=== PATIENT | female | born 1990 | race Two or more races ===

== ENCOUNTER 2018-02-18 15:19 | Emergency (ER) | payer SELFPAY ==
[~2018-02-18] VITALS: Ht 165.1 cm; Wt 63.5 kg
[~2018-02-18 15:19] MED LIST: AZITHROMYCIN250 MG ORAL; HYDROCODON-ACE1 EA15 ORAL; IBUPROFEN600 MG ORAL; LIDOCAINE VISC100 ML ORAL; NKM; TYLENOL EXTRA500 MG ORAL
[2018-02-18 15:53] VITALS: BP 117/78
--- NOTE | 2018-02-18 16:04 | Emergency Room Report ---
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 Patient denies new trauma or fall since previous 2 visits over the course of the last 2 weeks. patient reports 10 out of 10 in severity knee pain times one month. Patient reports that she needs an MRI and has been unable to schedule one. Patient reports that she return to the ER last week and was given an orthopedist referral information however she was not able to contact that doctor to schedule an appointment therefore she return to the emergency department for additional orthopedic referrals. Allergies: Coded Allergies: No Known Allergies (Unverified , 02/13/18) Patient History Past Medical History: see triage record Past Surgical History: none Pertinent Family History: none Last Menstrual Period: 01/19/18 Now: No Reviewed Nursing Documentation: PMH: Agreed; PSxH: Agreed Nursing Documentation-PMH Past Medical History: No Stated History Review of Systems All Other Systems: negative except mentioned in HPI Physical Exam Vital Signs Date Time Temp Pulse Resp B/P (MAP) Pulse Ox O2 Delivery O2 Flow Rate FiO2 02/18/18 15:52 97.5 16 117/78 100 Room Air Sp02 EP Interpretation: reviewed, normal General Appearance: no apparent distress, alert, GCS 15, non-toxic Head: normocephalic, atraumatic Eyes: bilateral eye normal inspection, bilateral eye PERRL ENT: hearing grossly normal, normal voice Neck: full range of motion Respiratory: speaking full sentences Musculoskeletal: back normal, gait/station normal, normal range of motion, tender - Left knee. Pt. is ambulatory with a non-compensatory steady gait, She is not using any assitive devices such as crutches or cane. Is not wearing antoine wrap or knee immobilizer. Neurologic: alert, oriented x3, responsive, motor strength/tone normal, sensory intact, normal gait, speech normal, grossly normal Psychiatric: judgement/insight normal Skin: normal color, no rash, warm/dry, well hydrated Medical Decision Making PA Attestation Dr. espinal is my supervising Physician whom patient management has been discussed with. Diagnostic Impression: Primary Impression: Non compliance with medical treatment Additional Impression: Left knee pain Qualified Codes: M25.562 - Pain in left knee ER Course Pt presents to ED c/o continued leftknee pain x 1 month with difficulty obtaining MRI and orthopedic follow up. Ddx considered but are not limited to Non-compliance, sprain, knee soft tissue injury, meniscal injury, just to name a few. Vital signs: are WNL, pt. is afebrile H&PE are most consistent with no acute injury or disease noted at this time. pt. is NAD, Able to answer questions appropriately, pt. is oriented. ambulatory with a steady non compensatory gait. not using any assistive devices such as crutches or cane and no antoine wrap or knee immobilizer. - Pt. declined crutches at her first visit. -Pt. is [not] homeless ORDERS: none required at this time, the diagnosis is clinical- Pt. has already been evaluated for this condition on two prior visits and no emergent condition was identified. - Prior imaging was negative. ED INTERVENTIONS: None required at this time, Pt. is stable for outpatient follow up -D/w pt. that she is being non-compliant with treatment plans and not resting her knee. d/w pt. that inability to schedule and orthopedic follow up does not constitute an emergency. -Pt. requests to speak with an alternate provider and requests physician. - Attending physician spoke evaluated pt. as well --Pt. is again provided with a list of free reduced cost primary health clinics where she can obtain orthopedic referrals from, and also a flyer for orthopedic urgent care that she could choose to follow up at as well. DISCHARGE: At this time pt. is stable for d/c to home. Will provide printed patient care instructions, and any necessary prescriptions. Care plan and follow up instructions have been discussed with the patient prior to discharge. Last Vital Signs Date Time Temp Pulse Resp B/P (MAP) Pulse Ox O2 Delivery O2 Flow Rate FiO2 02/18/18 15:52 97.5 16 117/78 100 Room Air Disposition: HOME, SELF-CARE Condition: Stable Scripts Naproxen* (NAPROSYN*) 250 Mg Tablet 250 MG ORAL TWICE A DAY, #14 TAB 0 Refills Prov: Nicole Dawn 02/18/18 Diclofenac Sodium (VOLTAREN) 100 Gm Gel..gram. 1 APPLIC TP TID, #100 GM Prov: Nicole Dawn 02/18/18 Patient Instructions: Medical Screening Exam Additional Instructions: Take medications as directed. Follow up with a Primary Care Provider in 3-5 days, even if your symptoms have resolved. --Please review list of primary care clinics, if you do not already have a primary care provider - Please note that this Emergency Department Report was dictated using [employer] director technology software, occasionally this can lead to erroneous entry secondary to interpretation by the dictation equipment. Nicole Dawn Feb 18, 2018 16:03
[2018-02-18] MEDS ORDERED: NAPROXEN250 MG ORAL (16:05)
[2018-02-18] MEDS ORDERED: VOLTAREN100 G1 TP (16:05)
[2018-02-18 16:22] VITALS: BP 117/78
== END 2018-02-18 17:00 | disposition home or self-care (01) ==
LOC: MERGE 16:25 → EMR 16:25
DX: M25.562 Pain in left knee (principal); Z91.19 Patient's noncompliance with other medical treatment and regimen
CPT/HCPCS: 99282